=== PATIENT | female | born 1975 | race African-American/Black ===

== ENCOUNTER 2018-02-10 12:45 | Emergency (ER) | payer SELFPAY ==
[2018-02-10] MEDS ORDERED: LIDOCAINE 1% INJ-PF (10 MG/ML) 30 ML SDV INJ ONE (14:16)
--- NOTE | 2018-02-10 14:17 | ER Document Report ---
ED Wound - General Chief Complaint: Laceration Stated Complaint: LEG LACERATION Time Seen by Provider: 02/10/18 14:09 Mode of Arrival: Ambulatory Information source: Patient Notes: Patient is a 43-year-old female who presents to the ER today for laceration to the left lower leg just below the knee after falling on a glass table at 11:30 AM this morning. Patient states that she was chasing a dog around the house when she tripped and fell. She denies hitting her head or loss of consciousness , cuts or pain anywhere else. Patient is up-to-date on her tetanus. Bleeding is controlled. TRAVEL OUTSIDE OF THE [place] IN LAST 30 DAYS: No - Related Data Allergies/Adverse Reactions: acetaminophen [From Vicodin] Allergy (Verified 06/29/16 09:55) hydrocodone [From Vicodin] Allergy (Verified 06/29/16 09:55) HAIR DYE Allergy (Uncoded 06/29/16 09:54) Past Medical History - General Information source: Patient - Social History Smoking Status: Never Smoker Chew tobacco use (# tins/day): No Frequency of alcohol use: None Drug Abuse: None Family History: Reviewed & Not Pertinent Patient has suicidal ideation: No Patient has homicidal ideation: No Pulmonary Medical History: Reports: Hx Bronchitis Renal/ Medical History: Denies: Hx Peritoneal Dialysis - Immunizations Hx Diphtheria, Pertussis, Tetanus Vaccination: Yes - 2011 Review of Systems - Review of Systems Constitutional: No symptoms reported EENT: No symptoms reported Cardiovascular: No symptoms reported Respiratory: No symptoms reported Gastrointestinal: No symptoms reported Genitourinary: No symptoms reported Female Genitourinary: No symptoms reported Musculoskeletal: No symptoms reported Skin: See HPI Hematologic/Lymphatic: No symptoms reported Neurological/Psychological: No symptoms reported Physical Exam - Vital signs Vitals: Temp Pulse Resp BP Pulse Ox 98.3 F 78 20 100/54 L 98 02/10/18 12:49 02/10/18 12:49 02/10/18 12:49 02/10/18 12:49 02/10/18 12:49 - Notes Notes: PHYSICAL EXAMINATION: GENERAL: Well-appearing and in no acute distress. HEAD: Atraumatic, normocephalic. EYES: Pupils equal round and reactive to light, extraocular movements intact, sclera anicteric, conjunctiva are normal. NECK: Normal range of motion, supple without lymphadenopathy LUNGS: CTAB and equal. No wheezes rales or rhonchi. HEART: Regular rate and rhythm without murmurs EXTREMITIES: Normal range of motion, no pitting edema. No cyanosis. NEUROLOGICAL: Cranial nerves grossly intact. Normal sensory/motor exams. PSYCH: Normal mood, normal affect. SKIN: Warm, Dry, normal turgor, 4-1/2 cm laceration, gaping to the left anterior lower leg just below the patella, no bleeding, no foreign body, superficial Course - Re-evaluation Re-evalutation: 02/10/18 15:07 Sutures were placed and hemostasis was achieved. - Vital Signs Vital signs: Temp Pulse Resp BP Pulse Ox 98.3 F 78 20 100/54 L 98 02/10/18 12:49 02/10/18 12:49 02/10/18 12:49 02/10/18 12:49 02/10/18 12:49 Procedures - Laceration/Wound Repair Left Lower Leg Time completed: 15:00 Wound length (cm): 4.5 Wound's Depth, Shape: Superficial, Linear Laceration pre-procedure: Sterile PPE donned, Sterile drapes applied, Shur- Clens applied Anesthetic type: 1% Lidocaine Volume Anesthetic (mLs): 3 Wound explored: Clean Irrigated w/ Saline (mLs): 30 Wound Repaired With: Sutures Suture Size/Type: 4:0, Nylon Number of Sutures: 11 Post-procedure wound care: Sterile dressing applied Post-procedure NV exam normal: Yes Complications: No Discharge - Discharge Clinical Impression: Laceration of leg Qualifiers: Encounter type: initial encounter Laterality: left Qualified Code(s): S81.812A - Laceration without foreign body, left lower leg, initial encounter Condition: Stable Disposition: HOME, SELF-CARE Additional Instructions: Return immediately for any new or worsening symptoms. Follow up with primary care provider, call tomorrow to make followup appointment. Please be seen in 7 days to have sutures removed. Prescriptions: Oxycodone HCl/Acetaminophen [Percocet 5-325 mg Tablet] 1 - 2 tab PO Q4H PRN #5 tablet PRN Reason:
[2018-02-10 15:17] VITALS: BP 112/62
== END 2018-02-10 15:10 | disposition home or self-care (01) ==
LOC: ER 12:45
DX: S81.812A Laceration without foreign body, left lower leg, initial encounter (principal); W01.110A Fall on same level from slipping, tripping and stumbling with subsequent striking against sharp glass, initial encounter; Y93.K9 Activity, other involving animal care; Y92.009 Unspecified place in unspecified non-institutional (private) residence as the place of occurrence of the external cause; Z91.048 Other nonmedicinal substance allergy status; Z88.6 Allergy status to analgesic agent; Z88.5 Allergy status to narcotic agent
CPT/HCPCS: 99282

== ENCOUNTER 2018-02-20 15:17 | Emergency (ER) | payer SELFPAY ==
[2018-02-20 15:22] VITALS: BP 132/82
--- NOTE | 2018-02-20 16:15 | ER Document Report ---
ED Suture/Wound Recheck - General Chief Complaint: Suture Removal Stated Complaint: SUTURE REMOVAL Time Seen by Provider: 02/20/18 15:56 Mode of Arrival: Ambulatory Notes: 43-year-old female presents to ED for wound recheck for laceration 11 days ago. She states she cut herself on a piece of glass at home. She states she has not taken any antibiotics and is been putting Vaseline on the wound. Patient is alert oriented respirations regular and unlabored walks with a even steady gait. TRAVEL OUTSIDE OF THE [place] IN LAST 30 DAYS: No - HPI Previous ED treatment: Laceration repair Quality of pain: Achy Severity: Mild Pain Level: 2 Symptoms since procedure: Other - Sore Exacerbated by: Walking Relieved by: Denies - Related Data Allergies/Adverse Reactions: acetaminophen [From Vicodin] Allergy (Verified 02/20/18 15:18) hydrocodone [From Vicodin] Allergy (Verified 02/20/18 15:18) HAIR DYE Allergy (Uncoded 02/20/18 15:18) Past Medical History - General Information source: Patient - Social History Smoking Status: Never Smoker Cigarette use (# per day): No Chew tobacco use (# tins/day): No Smoking Education Provided: No Frequency of alcohol use: None Drug Abuse: None Lives with: Family Family History: Reviewed & Not Pertinent Patient has suicidal ideation: No Patient has homicidal ideation: No - Past Medical History Cardiac Medical History: Reports: None Pulmonary Medical History: Reports: Hx Bronchitis EENT Medical History: Reports: None Neurological Medical History: Reports: None Endocrine Medical History: Reports: None Renal/ Medical History: Reports: None Malignancy Medical History: Reports: None GI Medical History: Reports: None Musculoskeltal Medical History: Reports None Skin Medical History: Reports None Psychiatric Medical History: Reports: None Traumatic Medical History: Reports: None Infectious Medical History: Reports: None Surgical Hx: Negative - Immunizations Hx Diphtheria, Pertussis, Tetanus Vaccination: Yes - 2011 Review of Systems - Review of Systems Skin: Other - Laceration to left lower leg is red slightly warm to the touch inflamed. Sutures were removed and Steri-Strips applied. Patient was started on Keflex. -: Yes All other systems reviewed and negative Physical Exam - Vital signs Vitals: Temp Pulse Resp BP Pulse Ox 98.5 F 77 16 132/82 H 99 02/20/18 15:21 02/20/18 15:21 02/20/18 15:21 02/20/18 15:21 02/20/18 15:21 - Skin Location of irregularity: Extremities - Left leg laceration sutured 11 days ago now red warm to the touch no drainage noted at this time it is inflamed. Patient started on Keflex sutures removed and Steri-Strips applied. Character of irregularity: Erythematous Irregularity with: Tenderness, Inflammation Course - Vital Signs Vital signs: Temp Pulse Resp BP Pulse Ox 98.5 F 77 16 132/82 H 99 02/20/18 15:21 02/20/18 15:21 02/20/18 15:21 02/20/18 15:21 02/20/18 15:21 Discharge - Discharge Clinical Impression: Visit for suture removal, Cellulitis of left lower extremity Condition: Stable Disposition: HOME, SELF-CARE Instructions: Family Physicians / Practices, Use of [id number] Ibuprofen ([facility]), Suture Removal Additional Instructions: CELLULITIS: You have an infection of your skin and underlying soft tissues called cellulitis. This is due to bacteria, which can enter through any break in the skin, or even through an irritated hair follicle. Untreated, cellulitis will usually worsen. Antibiotics are required. Usually, warm packs or warm soaks, and elevation of the infected area are recommended. You should start getting better within 24 to 36 hours. Most infections respond quickly to the right medication. Follow-up care is important, however, to check for abscess (boil) formation, unsuspected foreign body, or resistant infection. If you develop fever, chills, or if the area of infection is becoming rapidly more swollen or painful, call the doctor at once. ANTIBIOTIC THERAPY: You have been given an antibiotic prescription. It's important that you take all the medication, unless instructed otherwise by your physician. Failure to complete the entire course can result in relapse of your condition. Common side effects of antibiotics include nausea, intestinal cramping, or diarrhea. Women may develop vaginal yeast infections, and babies can get yeast (thrush) in the mouth following the use of antibiotics. Contact your physician if you develop significant side effects from this medication. Allergy to this antibiotic can result in hives, wheezing, faintness, or itching. If symptoms of allergy occur, stop the medication and call the doctor. Cephalexin The antibiotic you've been prescribed is a member of the cephalosporin class. This type of antibiotic covers a wide variety of infections, including those of the skin, lungs, and urinary tract. It's useful for staph infections. This antibiotic is slightly similar to the penicillin family. In rare cases , a person who is allergic to penicillin will also be allergic to this medication. If you have had a severe allergic reaction to penicillin, and have not taken this antibiotic since that time, notify your doctor. Antibiotics which cover many germs ("broad spectrum" antibiotics) are more likely to cause diarrhea or "yeast" infections. Women prone to vaginal yeast problems may suffer an attack after taking this antibiotic. In infants, oral thrush (white spots "stuck" on the cheek) or yeast diaper rash may result. See your doctor if these problems occur. Call at once if you develop itching, hives , shortness of breath, or lightheadedness. Care of Steri-Strip Closure Your cut has been closed up with a special surgical tape. For this type of cut, it can replace stitches. You must protect the wound just as you would with stitches, however. For the first few days, keep the wound area completely dry. This also means you should avoid activity which makes you sweat. Do not move the area if motion stretches or wrinkles the strips. Don't allow the area to be bumped -- if bleeding occurs, the blood can make the strips loosen. The strips are somewhat waterproof. After a few days, the physician may allow you to shower. Be sure to ask if it's OK. Do not remove the tape until it peels off by itself. At that time, the wound should be healed. FOLLOW-UP CARE: If you have been referred to a physician for follow-up care, call the physician s office for an appointment as you were instructed or within the next two days. If you experience worsening or a significant change in your symptoms, notify the physician immediately or return to the Emergency Department at any time for re-evaluation. Prescriptions: Cephalexin Monohydrate [Keflex 500 mg Capsule] 500 mg PO Q6H 5 Days capsule Forms: Elevated Blood Pressure, Return to Work Referrals: CATE ALONZO, [Primary Care Provider] - Follow up as needed
[2018-02-20] MEDS ORDERED: CEPHALEXIN 500 MG CAPSULE PO ONE (16:18)
== END 2018-02-20 16:27 | disposition home or self-care (01) ==
LOC: ER 15:17
DX: S81.812D Laceration without foreign body, left lower leg, subsequent encounter (principal); W25.XXXD Contact with sharp glass, subsequent encounter; L03.811 Cellulitis of head [any part, except face]

== ENCOUNTER 2018-06-16 11:41 | Emergency (ER) | payer SELFPAY | END 2018-06-16 12:02 | disposition left against medical advice (07) | LOC: ER 11:41 | DX: Z53.21 Procedure and treatment not carried out due to patient leaving prior to being seen by health care provider (principal) ==

== ENCOUNTER 2018-08-31 13:55 | Emergency (ER) | payer OTHER ==
[2018-08-31 14:03] VITALS: BP 135/83
[2018-08-31] MEDS ORDERED: PREDNISONE 20 MG TABLET PO ONE (14:30)
[2018-08-31] MEDS ORDERED: DIPHENHYDRAMINE HCL 50 MG CAPSULE PO ONE (14:30)
[2018-08-31] MEDS ORDERED: FAMOTIDINE 20 MG TABLET PO ONE (14:30)
--- NOTE | 2018-08-31 14:38 | ER Document Report ---
ED Allergic Reaction - General Chief Complaint: Allergic Reaction Stated Complaint: WC/POSSIBLE ALLERGIC REACTION Time Seen by Provider: 08/31/18 14:23 Mode of Arrival: Ambulatory Information source: Patient Notes: 43-year-old female presents to ED for complaint of pain itching and swelling to both arms for about an hour. She states she works at the [employer] and she has to dip her arms and this cleaning solution that stings and makes her have itching and swelling. She states it did a couple days ago and she has clumps it goes up to her elbow but the solution goes up to her shoulders and it goes down the gloves. Patient denies any shortness of breath any swelling to the throat any swelling to the lips or any trouble speaking. Patient is alert oriented respirations regular and unlabored lungs are clear speaking in full sentences and walks with a even steady gait. TRAVEL OUTSIDE OF THE [place] IN LAST 30 DAYS: No - HPI Onset: Other - She states his been about an hour this time but it happened last week and another day each time she uses the same these portions liquid at work Onset/Duration: Intermittent Quality of pain: Burning Severity: Mild Pain Level: 1 Identified cause: Yes - She states is the dishwashing liquid at work Other exposure: Detergent Skin rash / itching: Extremities, "Redness", "Hives" Associated symptoms: None Similar symptoms previously: Yes Recently seen / treated by doctor: No - Related Data Allergies/Adverse Reactions: acetaminophen [From Vicodin] Allergy (Verified 08/31/18 13:58) hydrocodone [From Vicodin] Allergy (Verified 08/31/18 13:58) HAIR DYE Allergy (Uncoded 08/31/18 13:58) Past Medical History - General Information source: Patient - Social History Smoking Status: Current Some Day Smoker Cigarette use (# per day): Yes - Some days Chew tobacco use (# tins/day): No Smoking Education Provided: Yes Frequency of alcohol use: Occasional Drug Abuse: None Occupation: D washer at the [employer] Lives with: Alone Family History: Reviewed & Not Pertinent Patient has suicidal ideation: No Patient has homicidal ideation: No - Past Medical History Cardiac Medical History: Reports: Hx Atrial Fibrillation Pulmonary Medical History: Reports: Hx Bronchitis EENT Medical History: Reports: None Neurological Medical History: Reports: None Endocrine Medical History: Reports: None Renal/ Medical History: Reports: None Malignancy Medical History: Reports: None GI Medical History: Reports: None Musculoskeletal Medical History: Reports None Skin Medical History: Reports None Psychiatric Medical History: Reports: None Traumatic Medical History: Reports: None Infectious Medical History: Reports: None Surgical Hx: Negative Past Surgical History: Reports: None - Immunizations Hx Diphtheria, Pertussis, Tetanus Vaccination: Yes - 2011 Review of Systems - Review of Systems Constitutional: No symptoms reported EENT: No symptoms reported Cardiovascular: No symptoms reported Respiratory: No symptoms reported Gastrointestinal: No symptoms reported Genitourinary: No symptoms reported Female Genitourinary: No symptoms reported Musculoskeletal: No symptoms reported Skin: Rash - Both arms Hematologic/Lymphatic: No symptoms reported Neurological/Psychological: No symptoms reported Physical Exam - Vital signs Vitals: Temp Pulse Resp BP Pulse Ox 97.7 F 86 20 135/83 H 99 08/31/18 14:02 08/31/18 14:02 08/31/18 14:02 08/31/18 14:02 08/31/18 14:02 Interpretation: Normal - General General appearance: Appears well, Alert - HEENT Head: Normocephalic, Atraumatic Eyes: Normal Pupils: PERRL - Respiratory Respiratory status: No respiratory distress Chest status: Nontender Breath sounds: Normal Chest palpation: Normal - Cardiovascular Rhythm: Regular Heart sounds: Normal auscultation Murmur: No - Abdominal Inspection: Normal Distension: No distension Bowel sounds: Normal Tenderness: Nontender Organomegaly: No organomegaly - Back Back: Normal, Nontender - Extremities General upper extremity: Normal color, Normal ROM, Normal temperature General lower extremity: Normal inspection, Nontender, Normal color, Normal ROM, Normal temperature, Normal weight bearing. No: Francesco's sign Forearm: Tender, Other - Rash to both forearms - Neurological Neuro grossly intact: Yes Cognition: Normal Orientation: AAOx4 [place] Coma Scale Eye Opening: Spontaneous [place] Coma Scale Verbal: Oriented [place] Coma Scale Motor: Obeys Commands [place] Coma Scale Total: 15 Speech: Normal Motor strength normal: LUE, RUE, LLE, RLE Sensory: Normal - Psychological Associated symptoms: Normal affect, Normal mood - Skin Skin Temperature: Warm Skin Moisture: Dry Skin Color: Normal Skin irregularity: Rash Location of irregularity: Extremities - Rash to both forearms Character of irregularity: Erythematous Irregularity with: Swelling, Tenderness Course - Re-evaluation Re-evalutation: 08/31/18 14:43 Patient was treated with Pepcid prednisone and Benadryl in the emergency room and discharged home with prescription for Pepcid and prednisone. She was instructed to get Benadryl [id number]. Patient was sent with a work note that she cannot use the same chemical at work again. Patient was discharged home to follow-up with a primary doctor. - Vital Signs Vital signs: Temp Pulse Resp BP Pulse Ox 97.7 F 86 20 135/83 H 99 08/31/18 14:02 08/31/18 14:02 08/31/18 14:02 08/31/18 14:02 08/31/18 14:02 Discharge - Discharge Clinical Impression: Allergic rash bilateral arm Condition: Stable Disposition: HOME, SELF-CARE Additional Instructions: ACUTE ALLERGIC REACTION: Your symptoms are due to an allergic reaction. Allergy can cause hives, swelling of the hands, feet, and face, hoarseness, and difficulty swallowing or breathing. It may be due to exposure to medication, animal dander, foods, infection, or insect bites. Medication is a common cause, even when prior use of this same medication caused no problems. Acute treatment may include adrenalin and antihistamines. Usually, the specific allergic agent can't be identified unless repeated episodes occur. Home treatment includes the following: (1) Stop any suspicious medications. This will be discussed with you. (2) Oral antihistamines for the next four to five days. Example, diphenhydramine (Benadryl) every four hours. (3) You may also use cimetidine (Tagamet), ranitidine (Zantac), or famotidine (Pepcid) every four hours if diphenhydramine is not controlling itching and hives. (4) Avoid aspirin until the hives completely disappear. (5) Avoid hot baths or showers until the hives are completely gone. Call the doctor if faintness, difficulty swallowing, tightness in the chest, or wheezing occurs. STEROID MEDICATION: You have been given a medicine of the cortisone/steroid class. This medication is used to control inflammation or allergy. It is usually only given for a short period of time, until the acute process subsides. There are usually no side effects from short-term use of cortisone-like medications. Some persons feel an increased sense of well-being and are not sleepy at bedtime. Long-term use of cortisone medications is best avoided, unless required for a severe condition. If your condition does not remit, or relapses after the course of corticosteroid medication, you should consult your physician. ACID-SUPPRESSING MEDICATION: You have a prescription for medicine which reduces the stomach's secretion of acid. Examples include Zantac, Tagament, and Pepcid. These drugs are often used to allow healing of ulcers or esophagitis. They may be needed to prevent recurrence of ulcers in some patients, or to prevent damage from acid reflux in the esophagus. Take all medication as prescribed, even after the pain is gone. Regular antacids may be added as needed if you have symptoms while taking this medicine. These medications sometimes are prescribed for allergic reactions because they have anti-histaminic effects and relieve the rash and itching of the reaction. There are usually no side effects from this medication. But, in rare cases and particularly in the elderly, serious problems can occur. Contact your doctor if there is fever, rash, hallucinations, confusion, or unusual bruising. Contact your doctor at once if you develop lightheadedness, black or bloody stool, or bloody vomitus. ANTIHISTAMINES: An antihistamine has been given and/or prescribed to control your symptoms. Antihistamines are used for many reasons, including itching, watering eyes, runny nose, allergic swelling, hives, and insect stings. Antihistamines may cause drowsiness, especially with the first dose. Do not operate machinery or drive while under the effects of the medication. Other common side effects include dry mouth and eyes. In older persons, antihistamines can occasionally cause urinary retention, constipation, and trouble focusing the eyes. Do not combine the medication with alcohol, or with any other medication without talking to your doctor. USE OF DIPHENHYDRAMINE: The use of diphenhydramine (Benadryl) has been recommended to control allergic symptoms. The 25 mg strength is available over- the-counter, as well as the elixir. This antihistamine is used for many symptoms. It's useful for itching, watering eyes and nose, allergic swelling, hives, and insect stings. The medication can be repeated four times daily. Age Elixir (12.5 mg/tsp) 25 mg pill 2-3 yr 1/2 tsp 4-8 yr 1 tsp 9-14 yr 2 tsp one tab adult 1-2 tabs Antihistamines may cause drowsiness, especially with the first dose. Do not operate machinery or drive while under the effects of the medication. Do not combine the medication with alcohol, or with any other medication without talking to your doctor. FOLLOW-UP CARE: If you have been referred to a physician for follow-up care, call the physicians office for an appointment as you were instructed or within the next two days. If you experience worsening or a significant change in your symptoms, notify the physician immediately or return to the Emergency Department at any time for re-evaluation. Prescriptions: Famotidine [Pepcid 20 mg Tablet] 20 mg PO DAILY #12 tablet Prednisone [Deltasone 20 mg Tablet] 2 tab PO DAILY 2 Days tablet Forms: Special Work Note, Return to Work Referrals: CATE ALONZO DO [Primary Care Provider] - Follow up in 3-5 days
== END 2018-08-31 14:42 | disposition home or self-care (01) ==
LOC: ER 13:55
DX: R21 Rash and other nonspecific skin eruption (principal); L29.9 Pruritus, unspecified; T78.40XA Allergy, unspecified, initial encounter; X58.XXXA Exposure to other specified factors, initial encounter; Y99.0 Civilian activity done for income or pay; I48.91 Unspecified atrial fibrillation; F17.210 Nicotine dependence, cigarettes, uncomplicated
CPT/HCPCS: 99283; J7512